=== PATIENT | female | born 1945 | race Caucasian/White ===

== ENCOUNTER 2021-03-17 22:51 | Inpatient (IN) ==
[2021-03-18] MEDS ORDERED: Naloxone 0.4 MG/ML INJ IVP PRN (02:08)
[2021-03-18] MEDS ORDERED: Ondansetron 4 MG/2 ML VIAL IVP PRN (02:08)
[2021-03-18] MEDS ORDERED: *HR* Dextrose 50 % in Water (Syg) 50 ML SYRINGE IVP PRN (02:21)
[2021-03-18] MEDS ORDERED: D5% in Water 1,000 ML IVC PRN (02:21)
[2021-03-18] MEDS ORDERED: Dextrose Gel 15 GM/37.5 ML TUBE PO PRN ×2 (02:21)
[2021-03-18] MEDS ORDERED: Perflutren Lipid Microsphere 1.3 ML in 0.9 % Sodium Chloride 8.7 ML IVP PRN (02:58)
[2021-03-18 03:11] LABS: Basophils % 0.1 %; Hemoglobin 10.4 g/dL (11.5-15.4); Immature Granulocytes % 0.4 % (0-4); Lymphocytes # 0.7 K/mcL (0.6-4.6); Lymphocytes % 4.5 %; Mean Corpuscular HGB Conc 30.6 g/dL (31.6-35.5); Mean Corpuscular Hemoglobin 26.4 pg (28.0-33.3); Mean Corpuscular Volume 86.3 fL (83.0-100.0); Mean Platelet Volume 9.7 fL (9.4-12.4); Monocytes # 0.1 K/mcL (0.0-1.3); Monocytes % 0.5 %; Neutrophils # 13.8 K/mcL (1.6-8.9); Platelet Count 216 K/mcL (140-400); Red Blood Count 3.94 M/mcL (3.82-4.97); Red Cell Distribution Width 13.1 % (11.5-14.5); Segmented Neutrophils % 94.5 %; White Blood Count 14.6 K/mcL (4.3-11.1)
[2021-03-18 03:15] LABS: INR 1.1; Prothrombin Time 11.9 Seconds (9.4-12.1)
[2021-03-18 03:29] LABS: Alanine Aminotransferase 12 Units/L (7-52); Albumin/Globulin Ratio 1.3 (1.1-2.2); Alkaline Phosphatase 101 Units/L (34-104); Aspartate Amino Transferase 15 Units/L (13-39); BUN/Creatinine Ratio 15 (6-26); Bilirubin,Total 0.3 mg/dL (0.3-1.0); Blood Urea Nitrogen 15 mg/dL (8-23); Calcium 9.2 mg/dL (8.6-10.3); Carbon Dioxide 35 mEq/L (23-29); Chloride 91 mEq/L (98-107); Globulin 3.1 g/dL (2.4-3.5); Glucose 201 mg/dL (70-105); Magnesium 1.2 mg/dL (1.6-2.6); Osmolality,Calculated 285 (280-300); Phosphorous 3.4 mg/dL (2.7-4.5); Potassium 3.8 mEq/L (3.5-5.1); Sodium 134 mEq/L (136-145); Total Protein 7.1 g/dL (6.4-8.9); Troponin I 0.03 ng/mL (< 0.04); eGFR For African Americans > 60 (> 60); eGFR For Non-African Americans 55 (> 60)
[2021-03-18] MEDS: Ipratropium/Albuterol Neb 3 ML IH SCH ×6 (03:48→23:39)
[2021-03-18] MEDS: MethylPREDNISolone 40 MG/ML VIAL IVP SCH ×3 (04:05→20:14)
[2021-03-18 04:36] LABS: Adenovirus Not Detected (Not Detect); Bordetella Pertussis Not Detected (Not Detect); Chlamydophila pneumoniae Not Detected (Not Detect); Coronavirus 229E Not Detected (Not Detect); Coronavirus HKU1 Not Detected (Not Detect); Coronavirus NL63 Not Detected (Not Detect); Coronavirus OC43 Not Detected (Not Detect); Human Metapneumovirus Not Detected (Not Detect); Human Rhinovirus/Enterovirus Not Detected (Not Detect); Influenza A Subtype 2009 H1 Not Detected (Not Detect); Influenza B Not Detected (Not Detect); Mycoplasma pneumoniae Not Detected (Not Detect); Parainfluenza Virus 1 Not Detected (Not Detect); Parainfluenza Virus 2 Not Detected (Not Detect); Parainfluenza Virus 3 Not Detected (Not Detect); Parainfluenza Virus 4 Not Detected (Not Detect); Respiratory Syncytial Virus Not Detected (Not Detect); SARS-CoV-2 Not Detected (Not Detect)
[2021-03-18] MEDS: *HR* Heparin 5,000 UNIT/ML VIAL SQ SCH ×3 (05:24→20:14)
[2021-03-18] MEDS: Acetaminophen 325 MG TABLET PO PRN ×2 (05:24→20:15)
[2021-03-18] MEDS ORDERED: MethylPREDNISolone 40 MG/ML VIAL IVP SCH (08:00)
[2021-03-18] MEDS: Artificial Tears SOLN 15 ML BOTTLE BOTH EYES SCH ×4 (08:04→20:13)
[2021-03-18] MEDS: Saline Nasal Spray 44 ML BOTTLE NS SCH ×4 (08:04→20:13)
[2021-03-18] MEDS: Saliva Stimulant 44.3ml BOTTLE PO SCH ×2 (08:04→13:04)
[2021-03-18] MEDS: cefTRIAXone 1,000 MG in 0.9 % Sodium Chloride Mini Bag 100 ML IVPB SCH (08:05)
[2021-03-18] MEDS: Lactobacillus 1 EACH CAP.SPRINK PO SCH ×2 (08:05→20:14)
[2021-03-18] MEDS: Multivit/Ca/Min/Fe/FA 1 TAB TABLET PO SCH (08:05)
[2021-03-18] MEDS: Azithromycin 500 MG in 0.9 % Sodium Chloride 250 ML IVPB SCH (08:06)
[2021-03-18] MEDS ORDERED: Chlorhexidine Rinse 15 ML MOUTHWASH MM SCH (09:00)
[2021-03-18] MEDS: Budesonide/Formoterol 160/4.5 1 PUFF INH IH SCH ×2 (09:08→20:26)
[2021-03-18 09:11] LABS: ABG Base Excess 10 mEq/L (-2 to 3); ABG HCO3 37 mEq/L (21-27); ABG Oxygen Saturation 97 % (95-98); ABG PCO2 63 mmHg (35-45); ABG PH 7.37 pH Units (7.32-7.45); ABG PO2 101 mmHg (85-104); ABG TCO2 39 mEq/L (20-26)
[2021-03-18] MEDS: Sennosides/Docusate Sodium TABLET PO SCH (14:13)
[2021-03-18 16:19] LABS: Bilirubin,Urine Negative (Negative); Blood,Urine Negative (Negative); Clarity,Urine Clear (Clear); Color,Urine Light-Yellow (Yellow); Glucose,Urine (UA) >=1000 mg/dL (Normal); Hyaline Casts,Urine Moderate per lpf (None Seen); Ketones,Urine Negative (Negative); Leukocyte Esterase,Urine Negative (Negative); Mucus,Urine Few per lpf (None-Few); Nitrite,Urine Negative (Negative); PH,Urine 5.5 pH Units (5.0-8.0); Protein,Urine Negative (Neg-Trace); Specific Gravity,Urine 1.015 (1.010-1.025); Squamous Epithelial Cell,Urine Few per hpf (None-Few); Urobilinogen,Urine Normal (Normal); WBC,Urine 0-3 per hpf (0-3)
[2021-03-18] MEDS: Acetylcysteine 10% 2 ML INHSOL IH SCH ×2 (16:27→20:26)
[2021-03-18] MEDS: Melatonin 3 MG TABLET PO PRN (20:14)
[2021-03-19 01:37] LABS: Basophils % 0.2 %; Hematocrit 32.5 % (35.3-44.9); Hemoglobin 10.3 g/dL (11.5-15.4); Immature Granulocytes % 0.6 % (0-4); Lymphocytes # 0.6 K/mcL (0.6-4.6); Lymphocytes % 4.4 %; Mean Corpuscular HGB Conc 31.7 g/dL (31.6-35.5); Mean Corpuscular Volume 85.3 fL (83.0-100.0); Mean Platelet Volume 9.7 fL (9.4-12.4); Monocytes # 0.2 K/mcL (0.0-1.3); Monocytes % 1.5 %; Neutrophils # 12.4 K/mcL (1.6-8.9); Platelet Count 230 K/mcL (140-400); Red Blood Count 3.81 M/mcL (3.82-4.97); Red Cell Distribution Width 13.2 % (11.5-14.5); Segmented Neutrophils % 93.3 %; White Blood Count 13.3 K/mcL (4.3-11.1)
[2021-03-19 01:40] LABS: BUN/Creatinine Ratio 19 (6-26); Blood Urea Nitrogen 15 mg/dL (8-23); Calcium 8.9 mg/dL (8.6-10.3); Carbon Dioxide 36 mEq/L (23-29); Chloride 92 mEq/L (98-107); Glucose 210 mg/dL (70-105); Osmolality,Calculated 287 (280-300); Potassium 3.5 mEq/L (3.5-5.1); Sodium 135 mEq/L (136-145); eGFR For African Americans > 60 (> 60); eGFR For Non-African Americans > 60 (> 60)
[2021-03-19] MEDS: Ipratropium/Albuterol Neb 3 ML IH SCH ×6 (03:58→23:43)
[2021-03-19] MEDS: MethylPREDNISolone 40 MG/ML VIAL IVP SCH (05:05)
[2021-03-19] MEDS: *HR* Heparin 5,000 UNIT/ML VIAL SQ SCH ×3 (05:05→20:52)
[2021-03-19] MEDS: Budesonide/Formoterol 160/4.5 1 PUFF INH IH SCH ×2 (08:16→19:59)
[2021-03-19] MEDS: Acetylcysteine 10% 2 ML INHSOL IH SCH ×3 (08:17→19:56)
[2021-03-19] MEDS: Multivit/Ca/Min/Fe/FA 1 TAB TABLET PO SCH (08:29)
[2021-03-19] MEDS: Lactobacillus 1 EACH CAP.SPRINK PO SCH ×2 (08:29→20:52)
[2021-03-19] MEDS: Saline Nasal Spray 44 ML BOTTLE NS SCH ×4 (08:29→20:52)
[2021-03-19] MEDS: Sennosides/Docusate Sodium TABLET PO SCH (08:29)
[2021-03-19] MEDS: cefTRIAXone 1,000 MG in 0.9 % Sodium Chloride Mini Bag 100 ML IVPB SCH (08:30)
[2021-03-19] MEDS: Artificial Tears SOLN 15 ML BOTTLE BOTH EYES SCH ×4 (08:30→20:52)
[2021-03-19] MEDS: Azithromycin 500 MG in 0.9 % Sodium Chloride 250 ML IVPB SCH (08:31)
[2021-03-19] MEDS ORDERED: SENNOSIDES 15 MG PO PRN (11:23)
[2021-03-19] MEDS ORDERED: Melatonin 3 MG TABLET PO PRN (11:25)
[2021-03-19] MEDS: predniSONE 20 MG TABLET PO SCH (13:00)
[2021-03-19] MEDS: Baclofen 10 MG TABLET PO SCH ×3 (13:00→20:51)
[2021-03-19] MEDS: Gabapentin 100 MG CAPSULE PO SCH ×2 (14:58→20:51)
[2021-03-19] MEDS: Budesonide/Formoterol 80/4.5 1 PUFF INH IH SCH (20:00)
[2021-03-19] MEDS: hydrOXYzine pamoate 25 MG CAPSULE PO SCH (20:51)
[2021-03-19] MEDS: Melatonin 3 MG TABLET PO PRN (20:51)
[2021-03-20] MEDS: Ipratropium/Albuterol Neb 3 ML IH SCH ×6 (04:17→23:25)
[2021-03-20] MEDS: *HR* Heparin 5,000 UNIT/ML VIAL SQ SCH ×3 (05:44→21:27)
[2021-03-20] MEDS: Budesonide/Formoterol 160/4.5 1 PUFF INH IH SCH ×2 (07:38→20:19)
[2021-03-20] MEDS: Acetylcysteine 10% 2 ML INHSOL IH SCH ×3 (07:38→20:19)
[2021-03-20] MEDS: Budesonide/Formoterol 80/4.5 1 PUFF INH IH SCH ×2 (07:46→20:22)
[2021-03-20] MEDS: Gabapentin 100 MG CAPSULE PO SCH ×3 (08:13→21:25)
[2021-03-20] MEDS: ARIPiprazole 5 MG TABLET PO SCH (08:13)
[2021-03-20] MEDS: Artificial Tears SOLN 15 ML BOTTLE BOTH EYES SCH ×4 (08:13→21:28)
[2021-03-20] MEDS: Saline Nasal Spray 44 ML BOTTLE NS SCH ×4 (08:13→21:28)
[2021-03-20] MEDS: Multivit/Ca/Min/Fe/FA 1 TAB TABLET PO SCH (08:14)
[2021-03-20] MEDS: Baclofen 10 MG TABLET PO SCH ×4 (08:14→21:25)
[2021-03-20] MEDS: Sennosides/Docusate Sodium TABLET PO SCH (08:14)
[2021-03-20] MEDS: Lactobacillus 1 EACH CAP.SPRINK PO SCH ×2 (08:14→21:25)
[2021-03-20] MEDS: hydrOXYzine pamoate 25 MG CAPSULE PO SCH ×2 (08:14→21:25)
[2021-03-20] MEDS: predniSONE 20 MG TABLET PO SCH (08:15)
[2021-03-20] MEDS: atenoloL 25 MG TABLET PO SCH (08:15)
[2021-03-20] MEDS: Melatonin 3 MG TABLET PO PRN (21:26)
[2021-03-21] MEDS: Ipratropium/Albuterol Neb 3 ML IH SCH ×6 (03:41→23:32)
[2021-03-21] MEDS: *HR* Heparin 5,000 UNIT/ML VIAL SQ SCH ×3 (06:06→21:56)
[2021-03-21 06:11] LABS: Hematocrit 33.6 % (35.3-44.9); Hemoglobin 10.5 g/dL (11.5-15.4); Mean Corpuscular HGB Conc 31.3 g/dL (31.6-35.5); Mean Corpuscular Hemoglobin 27.3 pg (28.0-33.3); Mean Corpuscular Volume 87.5 fL (83.0-100.0); Mean Platelet Volume 9.6 fL (9.4-12.4); Platelet Count 259 K/mcL (140-400); Red Blood Count 3.84 M/mcL (3.82-4.97); Red Cell Distribution Width 13.3 % (11.5-14.5)
[2021-03-21 06:19] LABS: BUN/Creatinine Ratio 21 (6-26); Blood Urea Nitrogen 16 mg/dL (8-23); Calcium 9.1 mg/dL (8.6-10.3); Carbon Dioxide 33 mEq/L (23-29); Chloride 97 mEq/L (98-107); Glucose 176 mg/dL (70-105); Osmolality,Calculated 289 (280-300); Potassium 3.3 mEq/L (3.5-5.1); Sodium 137 mEq/L (136-145); eGFR For African Americans > 60 (> 60); eGFR For Non-African Americans > 60 (> 60)
[2021-03-21] MEDS: Lactobacillus 1 EACH CAP.SPRINK PO SCH ×2 (07:44→21:56)
[2021-03-21] MEDS: Baclofen 10 MG TABLET PO SCH ×4 (07:44→21:56)
[2021-03-21] MEDS: Sennosides/Docusate Sodium TABLET PO SCH (07:44)
[2021-03-21] MEDS: Multivit/Ca/Min/Fe/FA 1 TAB TABLET PO SCH (07:44)
[2021-03-21] MEDS: Gabapentin 100 MG CAPSULE PO SCH ×3 (07:44→21:56)
[2021-03-21] MEDS: hydrOXYzine pamoate 25 MG CAPSULE PO SCH ×2 (07:44→21:56)
[2021-03-21] MEDS: predniSONE 20 MG TABLET PO SCH (07:44)
[2021-03-21] MEDS: Saline Nasal Spray 44 ML BOTTLE NS SCH ×4 (07:45→21:55)
[2021-03-21] MEDS: atenoloL 25 MG TABLET PO SCH (07:45)
[2021-03-21] MEDS: Artificial Tears SOLN 15 ML BOTTLE BOTH EYES SCH ×4 (07:45→16:44)
[2021-03-21] MEDS: ARIPiprazole 5 MG TABLET PO SCH (07:45)
[2021-03-21] MEDS: Acetylcysteine 10% 2 ML INHSOL IH SCH ×3 (08:23→23:32)
[2021-03-21] MEDS: Budesonide/Formoterol 160/4.5 1 PUFF INH IH SCH ×2 (08:23→19:34)
[2021-03-21] MEDS: Budesonide/Formoterol 80/4.5 1 PUFF INH IH SCH ×2 (11:44→19:34)
[2021-03-22] MEDS: Ipratropium/Albuterol Neb 3 ML IH SCH ×6 (03:21→23:07)
[2021-03-22] MEDS: *HR* Heparin 5,000 UNIT/ML VIAL SQ SCH ×3 (05:35→20:04)
[2021-03-22] MEDS: Gabapentin 100 MG CAPSULE PO SCH ×3 (07:23→20:01)
[2021-03-22] MEDS: hydrOXYzine pamoate 25 MG CAPSULE PO SCH ×2 (07:23→20:06)
[2021-03-22] MEDS: Multivit/Ca/Min/Fe/FA 1 TAB TABLET PO SCH (07:23)
[2021-03-22] MEDS: predniSONE 20 MG TABLET PO SCH (07:23)
[2021-03-22] MEDS: Lactobacillus 1 EACH CAP.SPRINK PO SCH ×2 (07:23→20:01)
[2021-03-22] MEDS: Sennosides/Docusate Sodium TABLET PO SCH (07:23)
[2021-03-22] MEDS: Baclofen 10 MG TABLET PO SCH ×3 (07:23→17:26)
[2021-03-22] MEDS: atenoloL 25 MG TABLET PO SCH (07:23)
[2021-03-22] MEDS: ARIPiprazole 5 MG TABLET PO SCH (07:23)
[2021-03-22] MEDS: Saline Nasal Spray 44 ML BOTTLE NS SCH ×4 (07:24→20:01)
[2021-03-22] MEDS: Artificial Tears SOLN 15 ML BOTTLE BOTH EYES SCH ×4 (07:24→20:01)
[2021-03-22] MEDS: Budesonide/Formoterol 160/4.5 1 PUFF INH IH SCH ×2 (08:54→20:08)
[2021-03-22] MEDS: Budesonide/Formoterol 80/4.5 1 PUFF INH IH SCH ×2 (08:54→20:08)
[2021-03-22] MEDS: Acetylcysteine 10% 2 ML INHSOL IH SCH ×3 (08:54→23:07)
[2021-03-22] MEDS: Acetaminophen 325 MG TABLET PO PRN (20:00)
[2021-03-23 04:09] VITALS: TEMP 97.9
[2021-03-23] MEDS: Ipratropium/Albuterol Neb 3 ML IH SCH ×3 (04:11→11:51)
[2021-03-23] MEDS: *HR* Heparin 5,000 UNIT/ML VIAL SQ SCH (06:10)
[2021-03-23 06:58] VITALS: BP 130/54; PULSE 81
[2021-03-23] MEDS: Acetylcysteine 10% 2 ML INHSOL IH SCH (08:26)
[2021-03-23] MEDS: Budesonide/Formoterol 160/4.5 1 PUFF INH IH SCH (08:44)
[2021-03-23 08:47] VITALS: O2SAT 96
[2021-03-23] MEDS: predniSONE 20 MG TABLET PO SCH (09:09)
[2021-03-23] MEDS: atenoloL 25 MG TABLET PO SCH (09:09)
[2021-03-23] MEDS: Sennosides/Docusate Sodium TABLET PO SCH (09:09)
[2021-03-23] MEDS: ARIPiprazole 5 MG TABLET PO SCH (09:09)
[2021-03-23] MEDS: hydrOXYzine pamoate 25 MG CAPSULE PO SCH (09:10)
[2021-03-23] MEDS: Multivit/Ca/Min/Fe/FA 1 TAB TABLET PO SCH (09:10)
[2021-03-23] MEDS: Lactobacillus 1 EACH CAP.SPRINK PO SCH (09:10)
[2021-03-23] MEDS: Gabapentin 100 MG CAPSULE PO SCH (09:10)
[2021-03-23] MEDS: Artificial Tears SOLN 15 ML BOTTLE BOTH EYES SCH (09:10)
[2021-03-23] MEDS: Saline Nasal Spray 44 ML BOTTLE NS SCH (09:11)
[2021-03-23] MEDS: Acetaminophen 325 MG TABLET PO PRN (10:35)
== END 2021-03-23 13:30 | disposition home health service (06) | DRG 871 ==
LOC: 2NENU → SUATTDRO 03-18 01:18
PROVIDERS: ADMIT Internal Medicine; ATTEND Internal Medicine

== ENCOUNTER 2021-09-01 21:42 | Inpatient (IN) ==
[2021-09-01 21:59] LABS: ABG Base Excess 17 mEq/L (-2 to 3); ABG HCO3 45 mEq/L (21-27); ABG Oxygen Saturation 96 % (95-98); ABG PCO2 70 mmHg (35-45); ABG PH 7.42 pH Units (7.32-7.45); ABG PO2 83 mmHg (85-104); ABG TCO2 47 mEq/L (20-26); Blood Gas Pressure Support 8 cm H2O
[2021-09-01 22:54] LABS: Basophils % 0.1 %; Eosinophils % 0.1 %; Hematocrit 36.3 % (35.3-44.9); Hemoglobin 11.1 g/dL (11.5-15.4); Immature Granulocytes % 0.8 % (0-4); Lymphocytes # 0.7 K/mcL (0.6-4.6); Lymphocytes % 8.4 %; Mean Corpuscular HGB Conc 30.6 g/dL (31.6-35.5); Mean Corpuscular Hemoglobin 26.5 pg (28.0-33.3); Mean Corpuscular Volume 86.6 fL (83.0-100.0); Mean Platelet Volume 9.5 fL (9.4-12.4); Monocytes # 0.1 K/mcL (0.0-1.3); Monocytes % 0.8 %; Neutrophils # 7.8 K/mcL (1.6-8.9); Platelet Count 314 K/mcL (140-400); Red Blood Count 4.19 M/mcL (3.82-4.97); Red Cell Distribution Width 13.9 % (11.5-14.5); Segmented Neutrophils % 89.8 %; White Blood Count 8.7 K/mcL (4.3-11.1)
[2021-09-01 22:58] LABS: BUN/Creatinine Ratio 22 (6-26); Blood Urea Nitrogen 21 mg/dL (8-23); Calcium 10.2 mg/dL (8.6-10.3); Carbon Dioxide 41 mEq/L (23-29); Chloride 86 mEq/L (98-107); Glucose 149 mg/dL (70-105); Osmolality,Calculated 290 (280-300); Potassium 4.8 mEq/L (3.5-5.1); Sodium 137 mEq/L (136-145); eGFR For African Americans > 60 (> 60); eGFR For Non-African Americans 58 (> 60)
[2021-09-01] MEDS ORDERED: cefTRIAXone 1,000 MG in 0.9 % Sodium Chloride 10 ML IVP ONE (23:04)
[2021-09-01] MEDS ORDERED: Azithromycin 500 MG in 0.9 % Sodium Chloride 250 ML IVPB ONE (23:04)
[2021-09-02] MEDS ORDERED: Naloxone 0.4 MG/ML INJ IVP PRN (02:02)
[2021-09-02] MEDS ORDERED: Melatonin 3 MG TABLET PO PRN (02:02)
[2021-09-02 02:57] LABS: Adenovirus Not Detected (Not Detect); Bordetella Pertussis Not Detected (Not Detect); Chlamydophila pneumoniae Not Detected (Not Detect); Coronavirus 229E Not Detected (Not Detect); Coronavirus HKU1 Not Detected (Not Detect); Coronavirus NL63 Not Detected (Not Detect); Coronavirus OC43 Not Detected (Not Detect); Human Metapneumovirus Not Detected (Not Detect); Human Rhinovirus/Enterovirus Not Detected (Not Detect); Influenza A Subtype 2009 H1 Not Detected (Not Detect); Influenza B Not Detected (Not Detect); Mycoplasma pneumoniae Not Detected (Not Detect); Parainfluenza Virus 1 Not Detected (Not Detect); Parainfluenza Virus 2 Not Detected (Not Detect); Parainfluenza Virus 3 Not Detected (Not Detect); Parainfluenza Virus 4 Not Detected (Not Detect); Respiratory Syncytial Virus Not Detected (Not Detect); SARS-CoV-2 Not Detected (Not Detect)
[2021-09-02] MEDS ORDERED: Acetaminophen 325 MG TABLET PO PRN (04:14)
[2021-09-02] MEDS ORDERED: Albuterol 2.5 MG/3 ML NEBULIZER IH PRN (04:16)
[2021-09-02 06:18] LABS: Hematocrit 35.5 % (35.3-44.9); Hemoglobin 10.9 g/dL (11.5-15.4); Mean Corpuscular HGB Conc 30.7 g/dL (31.6-35.5); Mean Corpuscular Hemoglobin 26.5 pg (28.0-33.3); Mean Corpuscular Volume 86.4 fL (83.0-100.0); Mean Platelet Volume 10.1 fL (9.4-12.4); Platelet Count 307 K/mcL (140-400); Red Blood Count 4.11 M/mcL (3.82-4.97); Red Cell Distribution Width 13.7 % (11.5-14.5)
[2021-09-02 06:24] LABS: BUN/Creatinine Ratio 26 (6-26); Blood Urea Nitrogen 20 mg/dL (8-23); Calcium 9.8 mg/dL (8.6-10.3); Carbon Dioxide 40 mEq/L (23-29); Chloride 89 mEq/L (98-107); Glucose 139 mg/dL (70-105); Osmolality,Calculated 291 (280-300); Potassium 4.8 mEq/L (3.5-5.1); Sodium 138 mEq/L (136-145); eGFR For African Americans > 60 (> 60); eGFR For Non-African Americans > 60 (> 60)
[2021-09-02] MEDS: Ipratropium/Albuterol Neb 3 ML IH SCH ×4 (07:48→21:15)
[2021-09-02] MEDS ORDERED: *HR* LORazepam 1 MG TABLET PO PRN (08:00)
[2021-09-02] MEDS: Gabapentin 100 MG CAPSULE PO SCH ×3 (08:55→20:05)
[2021-09-02] MEDS ORDERED: predniSONE 20 MG TABLET PO SCH (09:00)
[2021-09-02 11:13] LABS: ABG Base Excess 14 mEq/L (-2 to 3); ABG HCO3 44 mEq/L (21-27); ABG Oxygen Saturation 98 % (95-98); ABG PCO2 82 mmHg (35-45); ABG PH 7.33 pH Units (7.32-7.45); ABG PO2 126 mmHg (85-104); ABG TCO2 46 mEq/L (20-26)
[2021-09-02] MEDS: Baclofen 10 MG TABLET PO SCH ×3 (12:29→20:05)
[2021-09-02] MEDS: *HR* HYDROcodone/Acet 5/325 mg TABLET PO PRN ×2 (12:29→20:34)
[2021-09-02] MEDS: Benzonatate 100 MG CAPSULE PO SCH ×2 (15:03→20:05)
[2021-09-02] MEDS ORDERED: cefTRIAXone 1,000 MG in Water for inj. (sterile) 10 ML IVP SCH (18:00)
[2021-09-02] MEDS: Azithromycin 500 MG in 0.9 % Sodium Chloride 250 ML IVPB SCH (18:02)
[2021-09-02] MEDS ORDERED: Ketorolac 30 MG/ML VIAL IVP ONE (19:17)
[2021-09-02] MEDS: Melatonin 3 MG TABLET PO SCH (20:04)
[2021-09-02] MEDS: hydrALAZINE 25 MG TABLET PO SCH (20:04)
[2021-09-02] MEDS: clonazePAM 0.5 MG TABLET PO SCH (20:04)
[2021-09-02] MEDS: Ondansetron ODT 4 MG TAB.RAPDIS SL PRN (20:34)
[2021-09-02] MEDS: Budesonide/Formoterol 80/4.5 1 PUFF INH IH SCH (21:15)
[2021-09-02] MEDS ORDERED: Acetaminophen IV 500 MG/50 ML BAG IVPB ONE (21:24)
[2021-09-03 01:17] LABS: Hematocrit 30.2 % (35.3-44.9); Hemoglobin 9.4 g/dL (11.5-15.4); Mean Corpuscular HGB Conc 31.1 g/dL (31.6-35.5); Mean Corpuscular Hemoglobin 26.6 pg (28.0-33.3); Mean Corpuscular Volume 85.3 fL (83.0-100.0); Mean Platelet Volume 9.8 fL (9.4-12.4); Platelet Count 265 K/mcL (140-400); Red Blood Count 3.54 M/mcL (3.82-4.97); Red Cell Distribution Width 13.5 % (11.5-14.5)
[2021-09-03 01:42] LABS: BUN/Creatinine Ratio 28 (6-26); Blood Urea Nitrogen 23 mg/dL (8-23); Calcium 9.1 mg/dL (8.6-10.3); Carbon Dioxide 42 mEq/L (23-29); Chloride 90 mEq/L (98-107); Glucose 225 mg/dL (70-105); Osmolality,Calculated 293 (280-300); Sodium 136 mEq/L (136-145); eGFR For African Americans > 60 (> 60); eGFR For Non-African Americans > 60 (> 60)
[2021-09-03 04:20] LABS: ABG Base Excess 16 mEq/L (-2 to 3); ABG HCO3 44 mEq/L (21-27); ABG Oxygen Saturation 100 % (95-98); ABG PCO2 78 mmHg (35-45); ABG PH 7.36 pH Units (7.32-7.45); ABG PO2 319 mmHg (85-104); ABG TCO2 47 mEq/L (20-26)
[2021-09-03] MEDS: Ipratropium/Albuterol Neb 3 ML IH SCH ×4 (04:21→22:08)
[2021-09-03] MEDS: *HR* HYDROcodone/Acet 5/325 mg TABLET PO PRN ×2 (04:43→14:56)
[2021-09-03] MEDS: MethylPREDNISolone 40 MG/ML VIAL IVP SCH (09:04)
[2021-09-03] MEDS: Piperacillin/Tazobactam 3.375 GM in 0.9 % Sodium Chloride Mini Bag 100 ML IVPB SCH ×2 (09:04→15:13)
[2021-09-03] MEDS: hydrALAZINE 25 MG TABLET PO SCH ×2 (09:05→22:01)
[2021-09-03] MEDS: Benzonatate 100 MG CAPSULE PO SCH ×3 (09:05→22:01)
[2021-09-03] MEDS: Gabapentin 100 MG CAPSULE PO SCH ×3 (09:05→22:01)
[2021-09-03] MEDS: Baclofen 10 MG TABLET PO SCH ×4 (09:05→22:01)
[2021-09-03] MEDS: atenoloL 25 MG TABLET PO SCH (09:05)
[2021-09-03] MEDS: Furosemide 20 MG TABLET PO SCH (09:05)
[2021-09-03] MEDS: Artificial Tears SOLN 15 ML BOTTLE BOTH EYES PRN ×3 (09:33→17:23)
[2021-09-03] MEDS: Budesonide/Formoterol 80/4.5 1 PUFF INH IH SCH ×2 (11:12→22:08)
[2021-09-03] MEDS ORDERED: Acetaminophen 325 MG TABLET PO PRN (13:25)
[2021-09-03] MEDS: Azithromycin 500 MG in 0.9 % Sodium Chloride 250 ML IVPB SCH (17:18)
[2021-09-03] MEDS: clonazePAM 0.5 MG TABLET PO SCH (22:01)
[2021-09-03] MEDS: Melatonin 3 MG TABLET PO SCH (22:01)
[2021-09-03] MEDS ORDERED: Acetaminophen IV 500 MG/50 ML BAG IVPB ONE (22:07)
[2021-09-03] MEDS ORDERED: 0.9 % Sodium Chloride 1,000 ML IVC ONE (23:09)
[2021-09-04] MEDS: *HR* HYDROcodone/Acet 5/325 mg TABLET PO PRN ×2 (02:36→15:04)
[2021-09-04] MEDS: Piperacillin/Tazobactam 3.375 GM in 0.9 % Sodium Chloride Mini Bag 100 ML IVPB SCH ×4 (02:56→17:56)
[2021-09-04 03:54] LABS: BUN/Creatinine Ratio 29 (6-26); Blood Urea Nitrogen 20 mg/dL (8-23); Carbon Dioxide 39 mEq/L (23-29); Chloride 93 mEq/L (98-107); Glucose 127 mg/dL (70-105); Osmolality,Calculated 290 (280-300); Sodium 138 mEq/L (136-145); eGFR For African Americans > 60 (> 60); eGFR For Non-African Americans > 60 (> 60)
[2021-09-04] MEDS: Ipratropium/Albuterol Neb 3 ML IH SCH ×4 (04:02→23:25)
[2021-09-04] MEDS: *HR* Enoxaparin 40 MG/0.4 ML SYRINGE SQ SCH (06:18)
[2021-09-04] MEDS: Benzonatate 100 MG CAPSULE PO SCH ×3 (08:32→21:05)
[2021-09-04] MEDS: Gabapentin 100 MG CAPSULE PO SCH ×3 (08:32→21:06)
[2021-09-04] MEDS: Baclofen 10 MG TABLET PO SCH ×4 (08:32→21:06)
[2021-09-04] MEDS: Furosemide 20 MG TABLET PO SCH (08:32)
[2021-09-04] MEDS: hydrALAZINE 25 MG TABLET PO SCH ×2 (08:33→21:06)
[2021-09-04] MEDS: MethylPREDNISolone 40 MG/ML VIAL IVP SCH (08:33)
[2021-09-04] MEDS: atenoloL 25 MG TABLET PO SCH (08:33)
[2021-09-04] MEDS ORDERED: Iopamidol - 370 500 ML MLS IVP ONE (10:33)
[2021-09-04] MEDS: Budesonide/Formoterol 80/4.5 1 PUFF INH IH SCH ×2 (11:04→23:25)
[2021-09-04 14:41] LABS: Bilirubin,Urine Negative (Negative); Blood,Urine Negative (Negative); Clarity,Urine Clear (Clear); Color,Urine Colorless (Yellow); Glucose,Urine (UA) Normal (Normal); Ketones,Urine Negative (Negative); Leukocyte Esterase,Urine Negative (Negative); Nitrite,Urine Negative (Negative); PH,Urine 6.5 pH Units (5.0-8.0); Protein,Urine Negative (Neg-Trace); Specific Gravity,Urine 1.015 (1.010-1.025); Urobilinogen,Urine Normal (Normal)
[2021-09-04] MEDS: Azithromycin 500 MG in 0.9 % Sodium Chloride 250 ML IVPB SCH (17:56)
[2021-09-04] MEDS: Melatonin 3 MG TABLET PO SCH (21:06)
[2021-09-04] MEDS: clonazePAM 0.5 MG TABLET PO SCH (21:06)
[2021-09-05] MEDS: Piperacillin/Tazobactam 3.375 GM in 0.9 % Sodium Chloride Mini Bag 100 ML IVPB SCH ×3 (02:31→18:08)
[2021-09-05] MEDS: *HR* HYDROcodone/Acet 5/325 mg TABLET PO PRN ×3 (02:33→18:08)
[2021-09-05 02:56] LABS: BUN/Creatinine Ratio 24 (6-26); Blood Urea Nitrogen 13 mg/dL (8-23); Calcium 8.9 mg/dL (8.6-10.3); Carbon Dioxide 41 mEq/L (23-29); Chloride 96 mEq/L (98-107); Glucose 105 mg/dL (70-105); Osmolality,Calculated 290 (280-300); Potassium 3.8 mEq/L (3.5-5.1); Sodium 140 mEq/L (136-145); eGFR For African Americans > 60 (> 60); eGFR For Non-African Americans > 60 (> 60)
[2021-09-05] MEDS: Ipratropium/Albuterol Neb 3 ML IH SCH ×4 (03:49→22:20)
[2021-09-05] MEDS: *HR* Enoxaparin 40 MG/0.4 ML SYRINGE SQ SCH (05:14)
[2021-09-05] MEDS: Gabapentin 100 MG CAPSULE PO SCH ×3 (09:04→19:36)
[2021-09-05] MEDS: Baclofen 10 MG TABLET PO SCH ×4 (09:04→19:36)
[2021-09-05] MEDS: atenoloL 25 MG TABLET PO SCH (09:04)
[2021-09-05] MEDS: Benzonatate 100 MG CAPSULE PO SCH ×3 (09:05→19:36)
[2021-09-05] MEDS: Furosemide 20 MG TABLET PO SCH (09:05)
[2021-09-05] MEDS: MethylPREDNISolone 40 MG/ML VIAL IVP SCH (09:05)
[2021-09-05] MEDS: hydrALAZINE 25 MG TABLET PO SCH ×2 (09:05→19:36)
[2021-09-05] MEDS: Budesonide/Formoterol 80/4.5 1 PUFF INH IH SCH ×2 (11:12→22:20)
[2021-09-05] MEDS: Artificial Tears SOLN 15 ML BOTTLE BOTH EYES PRN ×2 (13:05→18:30)
[2021-09-05] MEDS: Azithromycin 500 MG in 0.9 % Sodium Chloride 250 ML IVPB SCH (17:15)
[2021-09-05] MEDS: clonazePAM 0.5 MG TABLET PO SCH (19:36)
[2021-09-05] MEDS: Melatonin 3 MG TABLET PO SCH (19:36)
[2021-09-06] MEDS: Piperacillin/Tazobactam 3.375 GM in 0.9 % Sodium Chloride Mini Bag 100 ML IVPB SCH ×3 (02:56→18:18)
[2021-09-06] MEDS: Ipratropium/Albuterol Neb 3 ML IH SCH ×4 (03:42→22:30)
[2021-09-06] MEDS: *HR* Enoxaparin 40 MG/0.4 ML SYRINGE SQ SCH (05:12)
[2021-09-06] MEDS ORDERED: Iopamidol - 370 500 ML MLS IVP ONE (07:15)
[2021-09-06] MEDS: Benzonatate 100 MG CAPSULE PO SCH ×3 (09:20→20:02)
[2021-09-06] MEDS: Furosemide 20 MG TABLET PO SCH (09:21)
[2021-09-06] MEDS: Gabapentin 100 MG CAPSULE PO SCH ×3 (09:21→20:02)
[2021-09-06] MEDS: hydrALAZINE 25 MG TABLET PO SCH ×2 (09:21→20:03)
[2021-09-06] MEDS: atenoloL 25 MG TABLET PO SCH (09:21)
[2021-09-06] MEDS: Baclofen 10 MG TABLET PO SCH ×4 (09:21→20:02)
[2021-09-06] MEDS: Artificial Tears SOLN 15 ML BOTTLE BOTH EYES PRN (09:22)
[2021-09-06] MEDS: MethylPREDNISolone 40 MG/ML VIAL IVP SCH (09:33)
[2021-09-06] MEDS: ALPRAZolam 0.25 MG TABLET PO PRN (10:03)
[2021-09-06] MEDS: *HR* HYDROcodone/Acet 5/325 mg TABLET PO PRN ×2 (10:03→18:18)
[2021-09-06] MEDS: Budesonide/Formoterol 80/4.5 1 PUFF INH IH SCH ×2 (10:59→22:32)
[2021-09-06] MEDS: clonazePAM 0.5 MG TABLET PO SCH (20:02)
[2021-09-06] MEDS: Melatonin 3 MG TABLET PO SCH (20:03)
[2021-09-07 01:30] LABS: Hematocrit 33.2 % (35.3-44.9); Hemoglobin 10.2 g/dL (11.5-15.4); Mean Corpuscular HGB Conc 30.7 g/dL (31.6-35.5); Mean Corpuscular Hemoglobin 26.8 pg (28.0-33.3); Mean Corpuscular Volume 87.1 fL (83.0-100.0); Mean Platelet Volume 10.2 fL (9.4-12.4); Platelet Count 242 K/mcL (140-400); Red Blood Count 3.81 M/mcL (3.82-4.97); Red Cell Distribution Width 13.8 % (11.5-14.5); White Blood Count 7.4 K/mcL (4.3-11.1)
[2021-09-07 01:48] LABS: BUN/Creatinine Ratio 23 (6-26); Blood Urea Nitrogen 17 mg/dL (8-23); Calcium 8.6 mg/dL (8.6-10.3); Carbon Dioxide 39 mEq/L (23-29); Chloride 97 mEq/L (98-107); Glucose 138 mg/dL (70-105); Osmolality,Calculated 292 (280-300); Potassium 3.7 mEq/L (3.5-5.1); Sodium 139 mEq/L (136-145); eGFR For African Americans > 60 (> 60); eGFR For Non-African Americans > 60 (> 60)
[2021-09-07] MEDS: Piperacillin/Tazobactam 3.375 GM in 0.9 % Sodium Chloride Mini Bag 100 ML IVPB SCH ×3 (02:09→17:37)
[2021-09-07] MEDS: Ipratropium/Albuterol Neb 3 ML IH SCH ×4 (04:20→23:22)
[2021-09-07] MEDS: *HR* Enoxaparin 40 MG/0.4 ML SYRINGE SQ SCH (05:02)
[2021-09-07] MEDS: *HR* HYDROcodone/Acet 5/325 mg TABLET PO PRN ×2 (05:49→15:09)
[2021-09-07] MEDS: hydrALAZINE 25 MG TABLET PO SCH ×2 (08:51→20:27)
[2021-09-07] MEDS: Baclofen 10 MG TABLET PO SCH ×4 (08:51→20:27)
[2021-09-07] MEDS: atenoloL 25 MG TABLET PO SCH (08:51)
[2021-09-07] MEDS: Furosemide 20 MG TABLET PO SCH (08:51)
[2021-09-07] MEDS: Gabapentin 100 MG CAPSULE PO SCH ×3 (08:51→20:27)
[2021-09-07] MEDS: predniSONE 20 MG TABLET PO SCH (08:51)
[2021-09-07] MEDS: Benzonatate 100 MG CAPSULE PO SCH ×3 (08:51→20:26)
[2021-09-07] MEDS: Artificial Tears SOLN 15 ML BOTTLE BOTH EYES PRN ×2 (08:54→18:50)
[2021-09-07] MEDS: Budesonide/Formoterol 80/4.5 1 PUFF INH IH SCH ×2 (09:59→23:22)
[2021-09-07] MEDS: ALPRAZolam 0.25 MG TABLET PO PRN (17:37)
[2021-09-07] MEDS: Ondansetron ODT 4 MG TAB.RAPDIS SL PRN (18:15)
[2021-09-07] MEDS: Melatonin 3 MG TABLET PO SCH (20:26)
[2021-09-07] MEDS: clonazePAM 0.5 MG TABLET PO SCH (20:27)
[2021-09-08] MEDS: Piperacillin/Tazobactam 3.375 GM in 0.9 % Sodium Chloride Mini Bag 100 ML IVPB SCH ×3 (03:24→18:27)
[2021-09-08] MEDS: Ipratropium/Albuterol Neb 3 ML IH SCH ×4 (04:16→22:35)
[2021-09-08] MEDS: *HR* Enoxaparin 40 MG/0.4 ML SYRINGE SQ SCH (06:01)
[2021-09-08] MEDS: *HR* HYDROcodone/Acet 5/325 mg TABLET PO PRN ×2 (07:39→18:28)
[2021-09-08] MEDS: Benzonatate 100 MG CAPSULE PO SCH ×3 (09:23→20:58)
[2021-09-08] MEDS: Baclofen 10 MG TABLET PO SCH ×4 (09:24→20:58)
[2021-09-08] MEDS: hydrALAZINE 25 MG TABLET PO SCH ×2 (09:25→20:58)
[2021-09-08] MEDS: Gabapentin 100 MG CAPSULE PO SCH ×3 (09:25→20:57)
[2021-09-08] MEDS: Furosemide 20 MG TABLET PO SCH (09:27)
[2021-09-08] MEDS: atenoloL 25 MG TABLET PO SCH (09:27)
[2021-09-08] MEDS: predniSONE 20 MG TABLET PO SCH (09:28)
[2021-09-08] MEDS: Budesonide/Formoterol 80/4.5 1 PUFF INH IH SCH ×2 (09:36→22:35)
[2021-09-08] MEDS: Melatonin 3 MG TABLET PO SCH (20:57)
[2021-09-08] MEDS: clonazePAM 0.5 MG TABLET PO SCH (20:58)
[2021-09-08] MEDS: Artificial Tears SOLN 15 ML BOTTLE BOTH EYES PRN (20:58)
[2021-09-09] MEDS: *HR* HYDROcodone/Acet 5/325 mg TABLET PO PRN ×3 (03:00→20:40)
[2021-09-09] MEDS: Piperacillin/Tazobactam 3.375 GM in 0.9 % Sodium Chloride Mini Bag 100 ML IVPB SCH ×3 (03:03→17:49)
[2021-09-09] MEDS: Ipratropium/Albuterol Neb 3 ML IH SCH ×4 (04:50→22:28)
[2021-09-09] MEDS: *HR* Enoxaparin 40 MG/0.4 ML SYRINGE SQ SCH (06:26)
[2021-09-09] MEDS: Budesonide/Formoterol 80/4.5 1 PUFF INH IH SCH ×2 (09:40→22:28)
[2021-09-09] MEDS: hydrALAZINE 25 MG TABLET PO SCH ×2 (11:00→20:36)
[2021-09-09] MEDS: Baclofen 10 MG TABLET PO SCH ×4 (11:00→20:39)
[2021-09-09] MEDS: Furosemide 20 MG TABLET PO SCH (11:00)
[2021-09-09] MEDS: predniSONE 20 MG TABLET PO SCH (11:00)
[2021-09-09] MEDS: Benzonatate 100 MG CAPSULE PO SCH ×3 (11:00→20:36)
[2021-09-09] MEDS: Gabapentin 100 MG CAPSULE PO SCH ×3 (11:00→20:36)
[2021-09-09] MEDS: ALPRAZolam 0.25 MG TABLET PO PRN ×2 (11:06→22:06)
[2021-09-09] MEDS: atenoloL 25 MG TABLET PO SCH (11:06)
[2021-09-09] MEDS: Melatonin 3 MG TABLET PO SCH (20:36)
[2021-09-09] MEDS: clonazePAM 0.5 MG TABLET PO SCH (20:36)
[2021-09-10] MEDS: Piperacillin/Tazobactam 3.375 GM in 0.9 % Sodium Chloride Mini Bag 100 ML IVPB SCH ×2 (02:00→11:22)
[2021-09-10] MEDS: Ipratropium/Albuterol Neb 3 ML IH SCH ×4 (03:51→22:42)
[2021-09-10] MEDS: *HR* Enoxaparin 40 MG/0.4 ML SYRINGE SQ SCH (06:23)
[2021-09-10] MEDS: *HR* HYDROcodone/Acet 5/325 mg TABLET PO PRN ×2 (06:30→20:17)
[2021-09-10] MEDS: atenoloL 25 MG TABLET PO SCH (08:35)
[2021-09-10] MEDS: Furosemide 20 MG TABLET PO SCH (08:35)
[2021-09-10] MEDS: Benzonatate 100 MG CAPSULE PO SCH ×3 (08:35→20:17)
[2021-09-10] MEDS: predniSONE 20 MG TABLET PO SCH (08:35)
[2021-09-10] MEDS: Baclofen 10 MG TABLET PO SCH ×4 (08:35→20:17)
[2021-09-10] MEDS: hydrALAZINE 25 MG TABLET PO SCH ×2 (08:35→20:18)
[2021-09-10] MEDS: Gabapentin 100 MG CAPSULE PO SCH ×3 (08:36→20:18)
[2021-09-10] MEDS: ALPRAZolam 0.25 MG TABLET PO PRN (08:41)
[2021-09-10] MEDS: Budesonide/Formoterol 80/4.5 1 PUFF INH IH SCH ×2 (10:50→22:42)
[2021-09-10] MEDS: Melatonin 3 MG TABLET PO SCH (20:17)
[2021-09-10] MEDS: clonazePAM 0.5 MG TABLET PO SCH (20:17)
[2021-09-11] MEDS: Ipratropium/Albuterol Neb 3 ML IH SCH ×3 (03:43→15:16)
[2021-09-11] MEDS: *HR* HYDROcodone/Acet 5/325 mg TABLET PO PRN ×2 (04:17→15:59)
[2021-09-11] MEDS: *HR* Enoxaparin 40 MG/0.4 ML SYRINGE SQ SCH (05:31)
[2021-09-11 07:20] VITALS: BP 146/68; PULSE 63; TEMP 98.1
[2021-09-11] MEDS: hydrALAZINE 25 MG TABLET PO SCH (09:23)
[2021-09-11] MEDS: Baclofen 10 MG TABLET PO SCH ×3 (09:23→15:59)
[2021-09-11] MEDS: Gabapentin 100 MG CAPSULE PO SCH ×2 (09:23→15:59)
[2021-09-11] MEDS: ALPRAZolam 0.25 MG TABLET PO PRN (09:23)
[2021-09-11] MEDS: Benzonatate 100 MG CAPSULE PO SCH ×2 (09:23→15:59)
[2021-09-11] MEDS: atenoloL 25 MG TABLET PO SCH (09:23)
[2021-09-11] MEDS: Furosemide 20 MG TABLET PO SCH (09:23)
[2021-09-11] MEDS: Budesonide/Formoterol 80/4.5 1 PUFF INH IH SCH (10:30)
[2021-09-11] MEDS: Artificial Tears SOLN 15 ML BOTTLE BOTH EYES PRN (12:37)
[2021-09-11 15:18] VITALS: O2SAT 98
[2021-09-11] MEDS ORDERED: ALPRAZolam 0.25 MG TABLET PO ONE (15:45)
== END 2021-09-11 17:00 | DRG 193 ==
LOC: 2ANU 21:42 → EMEROOARM 21:42 → 2ANU 09-02 02:20 → SUATTDRO 09-02 12:20
PROVIDERS: ADMIT Family Medicine; ATTEND Internal Medicine

== ENCOUNTER 2021-11-29 12:55 | Inpatient (IN) ==
[2021-11-29] MEDS ORDERED: Ipratropium/Albuterol Neb 3 ML IH ONE (13:27)
[2021-11-29] MEDS ORDERED: methylPREDNISolone 125 MG/2 ML VIAL IVP ONE (13:27)
[2021-11-29] MEDS ORDERED: Aspirin 325 MG TABLET PO ONE (13:42)
[2021-11-29] MEDS ORDERED: cefTRIAXone 1,000 MG in 0.9 % Sodium Chloride 10 ML IVP ONE (14:17)
[2021-11-29] MEDS ORDERED: Azithromycin 500 MG in 0.9 % Sodium Chloride 250 ML IVPB ONE (14:17)
[2021-11-29 14:22] LABS: Basophils % 0.2 %; Eosinophils # 0.3 K/mcL (0.0-0.6); Eosinophils % 2.8 %; Hematocrit 32.7 % (35.3-44.9); Hemoglobin 10.1 g/dL (11.5-15.4); Immature Granulocytes % 0.5 % (0-4); Lymphocytes # 2.1 K/mcL (0.6-4.6); Lymphocytes % 23.3 %; Mean Corpuscular HGB Conc 30.9 g/dL (31.6-35.5); Mean Corpuscular Hemoglobin 27.7 pg (28.0-33.3); Mean Corpuscular Volume 89.6 fL (83.0-100.0); Mean Platelet Volume 9.8 fL (9.4-12.4); Monocytes # 0.7 K/mcL (0.0-1.3); Monocytes % 7.4 %; Neutrophils # 5.8 K/mcL (1.6-8.9); Platelet Count 316 K/mcL (140-400); Red Blood Count 3.65 M/mcL (3.82-4.97); Red Cell Distribution Width 14.7 % (11.5-14.5); Segmented Neutrophils % 65.8 %; White Blood Count 8.9 K/mcL (4.3-11.1)
[2021-11-29 14:35] LABS: BUN/Creatinine Ratio 17 (6-26); Blood Urea Nitrogen 13 mg/dL (8-23); Calcium 9.2 mg/dL (8.6-10.3); Carbon Dioxide 36 mEq/L (23-29); Chloride 97 mEq/L (98-107); Glucose 86 mg/dL (70-105); Osmolality,Calculated 287 (280-300); Potassium 4.3 mEq/L (3.5-5.1); Sodium 139 mEq/L (136-145)
[2021-11-29 14:36] LABS: Troponin I < 0.03 ng/mL (< 0.04)
[2021-11-29] MEDS ORDERED: Naloxone 0.4 MG/ML INJ IVP PRN (17:20)
[2021-11-29] MEDS ORDERED: Mag Hydrox/Al Hydrox/Simeth 30 ML UDC PO PRN (17:20)
[2021-11-29] MEDS ORDERED: Melatonin 3 MG TABLET PO PRN (17:20)
[2021-11-29] MEDS ORDERED: Acetaminophen 325 MG TABLET PO PRN (17:20)
[2021-11-29 17:28] LABS: Adenovirus Not Detected (Not Detect); Bordetella Pertussis Not Detected (Not Detect); Chlamydophila pneumoniae Not Detected (Not Detect); Coronavirus 229E Not Detected (Not Detect); Coronavirus HKU1 Not Detected (Not Detect); Coronavirus NL63 Not Detected (Not Detect); Coronavirus OC43 Not Detected (Not Detect); Human Metapneumovirus Not Detected (Not Detect); Human Rhinovirus/Enterovirus Not Detected (Not Detect); Influenza A Subtype 2009 H1 Not Detected (Not Detect); Influenza B Not Detected (Not Detect); Mycoplasma pneumoniae Not Detected (Not Detect); Parainfluenza Virus 1 Not Detected (Not Detect); Parainfluenza Virus 2 Not Detected (Not Detect); Parainfluenza Virus 3 Not Detected (Not Detect); Parainfluenza Virus 4 Not Detected (Not Detect); Respiratory Syncytial Virus Not Detected (Not Detect); SARS-CoV-2 Not Detected (Not Detect)
[2021-11-29] MEDS: predniSONE 20 MG TABLET PO SCH (17:45)
[2021-11-29] MEDS ORDERED: Ipratropium/Albuterol Neb 3 ML IH PRN (20:31)
[2021-11-29] MEDS: Melatonin 3 MG TABLET PO SCH (21:45)
[2021-11-29] MEDS: Famotidine 20 MG TABLET PO SCH (21:45)
[2021-11-29] MEDS: clonazePAM 0.5 MG TABLET PO SCH (21:45)
[2021-11-29] MEDS ORDERED: *HR* FentaNYL (PF) 100 MCG/2 ML VIAL IVP ONE (22:00)
[2021-11-29] MEDS: Budesonide/Formoterol 160/4.5 1 PUFF INH IH SCH (22:13)
[2021-11-30] MEDS ORDERED: 0.9 % Sodium Chloride 10 ML PF VIAL IVP ONE (00:06)
[2021-11-30] MEDS: Cefepime HCl 2,000 MG in 0.9 % Sodium Chloride 10 ML IVP SCH ×3 (00:12→18:12)
[2021-11-30 01:55] LABS: Basophils % 0.1 %; Hematocrit 30.1 % (35.3-44.9); Hemoglobin 9.4 g/dL (11.5-15.4); Immature Granulocytes % 0.7 % (0-4); Lymphocytes # 1.1 K/mcL (0.6-4.6); Lymphocytes % 12.7 %; Mean Corpuscular HGB Conc 31.2 g/dL (31.6-35.5); Mean Corpuscular Hemoglobin 27.5 pg (28.0-33.3); Mean Platelet Volume 9.9 fL (9.4-12.4); Monocytes # 0.1 K/mcL (0.0-1.3); Monocytes % 0.6 %; Neutrophils # 7.4 K/mcL (1.6-8.9); Platelet Count 309 K/mcL (140-400); Red Blood Count 3.42 M/mcL (3.82-4.97); Red Cell Distribution Width 14.6 % (11.5-14.5); Segmented Neutrophils % 85.9 %; White Blood Count 8.6 K/mcL (4.3-11.1)
[2021-11-30 02:02] LABS: Estimated Average Glucose 117 mg/dl; Hemoglobin A1C 5.7 %
[2021-11-30 02:18] LABS: Calcium 8.8 mg/dL (8.6-10.3); Potassium 3.9 mEq/L (3.5-5.1)
[2021-11-30] MEDS: Budesonide/Formoterol 160/4.5 1 PUFF INH IH SCH ×3 (08:00→23:24)
[2021-11-30] MEDS: *HR* HYDROcodone/Acet 5/325 mg TABLET PO PRN ×2 (09:57→18:13)
[2021-11-30] MEDS: predniSONE 20 MG TABLET PO SCH (09:57)
[2021-11-30] MEDS: *HR* Enoxaparin 40 MG/0.4 ML SYRINGE SQ SCH (09:57)
[2021-11-30] MEDS ORDERED: Ondansetron ODT 4 MG TAB.RAPDIS SL PRN (10:03)
[2021-11-30] MEDS ORDERED: Artificial Tears SOLN 15 ML BOTTLE OP PRN (10:03)
[2021-11-30 11:16] LABS: Magnesium 1.8 mg/dL (1.6-2.6); Phosphorous 3.8 mg/dL (2.7-4.5)
[2021-11-30] MEDS ORDERED: Magnesium Oxide 400 MG TABLET ONE (12:43)
[2021-11-30] MEDS ORDERED: atenoloL 50 MG TABLET ONE (12:44)
[2021-11-30] MEDS ORDERED: Benzonatate 100 MG CAPSULE PO ONE (12:45)
[2021-11-30] MEDS ORDERED: ALPRAZolam 0.25 MG TABLET ONE (12:46)
[2021-11-30] MEDS ORDERED: GuaiFENesin Liq 200 MG/10 ML UDC PO PRN (14:33)
[2021-11-30] MEDS: Benzonatate 100 MG CAPSULE PO SCH ×3 (14:46→20:13)
[2021-11-30] MEDS: atenoloL 50 MG TABLET PO SCH (14:46)
[2021-11-30] MEDS: Magnesium Oxide 400 MG TABLET PO SCH (14:47)
[2021-11-30] MEDS: Gabapentin 100 MG CAPSULE PO SCH ×2 (15:08→20:13)
[2021-11-30] MEDS: Baclofen 10 MG TABLET PO SCH ×3 (15:09→20:25)
[2021-11-30] MEDS: ALPRAZolam 0.5 MG TABLET PO PRN ×2 (15:09→20:13)
[2021-11-30] MEDS: Azithromycin 500 MG in 0.9 % Sodium Chloride 250 ML IVPB SCH (18:12)
[2021-11-30] MEDS: Mirtazapine 15 MG TABLET PO SCH (20:13)
[2021-11-30] MEDS: hydrALAZINE 10 MG TABLET PO SCH (20:13)
[2021-11-30] MEDS: Melatonin 3 MG TABLET PO SCH (20:13)
[2021-11-30] MEDS: Famotidine 20 MG TABLET PO SCH (20:14)
[2021-11-30] MEDS: clonazePAM 0.5 MG TABLET PO SCH (20:14)
[2021-12-01] MEDS: Cefepime HCl 2,000 MG in 0.9 % Sodium Chloride 10 ML IVP SCH ×2 (01:58→13:10)
[2021-12-01 03:32] LABS: Basophils % 0.2 %; Hematocrit 32.5 % (35.3-44.9); Immature Granulocytes % 0.5 % (0-4); Lymphocytes # 1.7 K/mcL (0.6-4.6); Mean Corpuscular HGB Conc 30.8 g/dL (31.6-35.5); Mean Corpuscular Hemoglobin 27.6 pg (28.0-33.3); Mean Corpuscular Volume 89.8 fL (83.0-100.0); Mean Platelet Volume 9.9 fL (9.4-12.4); Monocytes % 9.4 %; Neutrophils # 8.2 K/mcL (1.6-8.9); Platelet Count 305 K/mcL (140-400); Potassium 4.4 mEq/L (3.5-5.1); Red Blood Count 3.62 M/mcL (3.82-4.97); Red Cell Distribution Width 14.6 % (11.5-14.5); Segmented Neutrophils % 74.9 %
[2021-12-01] MEDS ORDERED: Cefepime HCl 2,000 MG in 0.9 % Sodium Chloride 10 ML IVP SCH (06:00)
[2021-12-01] MEDS ORDERED: Tiotropium 10 INH DOSE IH ONE (07:48)
[2021-12-01] MEDS: Budesonide/Formoterol 160/4.5 1 PUFF INH IH SCH ×4 (07:51→21:05)
[2021-12-01] MEDS: Tiotropium 10 INH DOSE IH SCH (07:51)
[2021-12-01] MEDS: *HR* HYDROcodone/Acet 5/325 mg TABLET PO PRN ×3 (08:17→23:40)
[2021-12-01] MEDS: *HR* Enoxaparin 40 MG/0.4 ML SYRINGE SQ SCH (08:17)
[2021-12-01] MEDS: Benzonatate 100 MG CAPSULE PO SCH ×3 (08:18→21:54)
[2021-12-01] MEDS: predniSONE 20 MG TABLET PO SCH (08:18)
[2021-12-01] MEDS: Baclofen 10 MG TABLET PO SCH ×4 (08:18→21:53)
[2021-12-01] MEDS: hydrALAZINE 10 MG TABLET PO SCH ×2 (08:18→21:53)
[2021-12-01] MEDS: atenoloL 50 MG TABLET PO SCH (08:19)
[2021-12-01] MEDS: Magnesium Oxide 400 MG TABLET PO SCH (08:19)
[2021-12-01] MEDS: Gabapentin 100 MG CAPSULE PO SCH ×3 (08:19→21:53)
[2021-12-01 08:24] LABS: A.calcoaceticus-baumannii cplx Not Detected (Not Detect); Bacteroides fragilis by PCR Not Detected (Not Detect); Candida albicans by PCR Not Detected (Not Detect); Candida auris by PCR Not Detected (Not Detect); Candida glabrata by PCR Not Detected (Not Detect); Candida krusei by PCR Not Detected (Not Detect); Candida parapsilosis by PCR Not Detected (Not Detect); Candida tropicalis by PCR Not Detected (Not Detect); Crypto. neoformans/gattii PCR Not Detected (Not Detect); Enterobacter cloacae Cmplx PCR Not Detected (Not Detect); Enterobacterales by PCR Not Detected (Not Detect); Enterococcus faecalis by PCR Not Detected (Not Detect); Enterococcus faecium by PCR Not Detected (Not Detect); Escherichia coli by PCR Not Detected (Not Detect); Klebs. pneumoniae group by PCR Not Detected (Not Detect); Klebsiella aerogenes by PCR Not Detected (Not Detect); Klebsiella oxytoca by PCR Not Detected (Not Detect); Proteus by PCR Not Detected (Not Detect); Pseudomonas aeruginosa by PCR Not Detected (Not Detect); Salmonella species by PCR Not Detected (Not Detect); Serratia marcescens by PCR Not Detected (Not Detect); Staph epidermidis by PCR Not Detected (Not Detect); Staph lugdunensis by PCR Not Detected (Not Detect); Staphylococcus aureus by PCR Not Detected (Not Detect); Staphylococcus by PCR DETECTED (Not Detect); Stenotrophomonas maltophilia Not Detected (Not Detect); Streptococcus agalactiae(B)PCR Not Detected (Not Detect); Streptococcus by PCR Not Detected (Not Detect); Streptococcus pneumoniae PCR Not Detected (Not Detect); Streptococcus pyogenes (A) PCR Not Detected (Not Detect)
[2021-12-01] MEDS: ALPRAZolam 0.5 MG TABLET PO PRN (08:34)
[2021-12-01] MEDS: Azithromycin 500 MG in 0.9 % Sodium Chloride 250 ML IVPB SCH (17:19)
[2021-12-01] MEDS: clonazePAM 0.5 MG TABLET PO SCH (21:53)
[2021-12-01] MEDS: Mirtazapine 15 MG TABLET PO SCH (21:53)
[2021-12-01] MEDS: Famotidine 20 MG TABLET PO SCH (21:54)
[2021-12-01] MEDS: Melatonin 3 MG TABLET PO SCH (21:54)
[2021-12-02] MEDS: Cefepime HCl 2,000 MG in 0.9 % Sodium Chloride 10 ML IVP SCH ×2 (00:44→13:13)
[2021-12-02 01:12] LABS: Basophils % 0.2 %; Eosinophils % 0.1 %; Hematocrit 32.7 % (35.3-44.9); Hemoglobin 10.1 g/dL (11.5-15.4); Immature Granulocytes % 0.6 % (0-4); Lymphocytes # 1.8 K/mcL (0.6-4.6); Lymphocytes % 17.7 %; Mean Corpuscular HGB Conc 30.9 g/dL (31.6-35.5); Mean Corpuscular Hemoglobin 27.9 pg (28.0-33.3); Mean Corpuscular Volume 90.3 fL (83.0-100.0); Mean Platelet Volume 10.1 fL (9.4-12.4); Monocytes # 0.6 K/mcL (0.0-1.3); Neutrophils # 7.5 K/mcL (1.6-8.9); Platelet Count 278 K/mcL (140-400); Red Blood Count 3.62 M/mcL (3.82-4.97); Red Cell Distribution Width 14.6 % (11.5-14.5); Segmented Neutrophils % 75.4 %; White Blood Count 9.9 K/mcL (4.3-11.1)
[2021-12-02 01:47] LABS: Potassium 3.7 mEq/L (3.5-5.1)
[2021-12-02] MEDS: atenoloL 50 MG TABLET PO SCH (08:37)
[2021-12-02] MEDS: Gabapentin 100 MG CAPSULE PO SCH ×3 (08:38→21:54)
[2021-12-02] MEDS: Magnesium Oxide 400 MG TABLET PO SCH (08:38)
[2021-12-02] MEDS: predniSONE 20 MG TABLET PO SCH (08:38)
[2021-12-02] MEDS: *HR* Enoxaparin 40 MG/0.4 ML SYRINGE SQ SCH (08:39)
[2021-12-02] MEDS: Benzonatate 100 MG CAPSULE PO SCH ×3 (08:39→21:54)
[2021-12-02] MEDS: hydrALAZINE 10 MG TABLET PO SCH ×2 (08:39→21:54)
[2021-12-02] MEDS: ALPRAZolam 0.5 MG TABLET PO PRN (08:55)
[2021-12-02] MEDS: Budesonide/Formoterol 160/4.5 1 PUFF INH IH SCH ×4 (11:26→20:19)
[2021-12-02] MEDS: Tiotropium 10 INH DOSE IH SCH (11:26)
[2021-12-02] MEDS: Baclofen 10 MG TABLET PO SCH ×3 (13:13→21:54)
[2021-12-02] MEDS: *HR* HYDROcodone/Acet 5/325 mg TABLET PO PRN (13:19)
[2021-12-02] MEDS: Azithromycin 500 MG in 0.9 % Sodium Chloride 250 ML IVPB SCH (17:09)
[2021-12-02] MEDS: clonazePAM 0.5 MG TABLET PO SCH (21:53)
[2021-12-02] MEDS: Melatonin 3 MG TABLET PO SCH (21:53)
[2021-12-02] MEDS: Mirtazapine 15 MG TABLET PO SCH (21:54)
[2021-12-02] MEDS: Famotidine 20 MG TABLET PO SCH (21:54)
[2021-12-03] MEDS: Cefepime HCl 2,000 MG in 0.9 % Sodium Chloride 10 ML IVP SCH ×2 (00:44→13:24)
[2021-12-03 02:07] LABS: Basophils % 0.2 %; Eosinophils % 0.1 %; Hematocrit 29.8 % (35.3-44.9); Hemoglobin 9.3 g/dL (11.5-15.4); Immature Granulocytes % 0.9 % (0-4); Lymphocytes # 1.9 K/mcL (0.6-4.6); Lymphocytes % 20.6 %; Mean Corpuscular HGB Conc 31.2 g/dL (31.6-35.5); Mean Corpuscular Hemoglobin 27.7 pg (28.0-33.3); Mean Corpuscular Volume 88.7 fL (83.0-100.0); Monocytes # 0.7 K/mcL (0.0-1.3); Monocytes % 7.1 %; Neutrophils # 6.6 K/mcL (1.6-8.9); Platelet Count 273 K/mcL (140-400); Red Blood Count 3.36 M/mcL (3.82-4.97); Red Cell Distribution Width 14.4 % (11.5-14.5); Segmented Neutrophils % 71.1 %; White Blood Count 9.3 K/mcL (4.3-11.1)
[2021-12-03 02:17] LABS: BUN/Creatinine Ratio 23 (6-26); Blood Urea Nitrogen 15 mg/dL (8-23); Calcium 8.9 mg/dL (8.6-10.3); Carbon Dioxide 33 mEq/L (23-29); Chloride 102 mEq/L (98-107); Glucose 159 mg/dL (70-105); Osmolality,Calculated 294 (280-300); Sodium 140 mEq/L (136-145)
[2021-12-03] MEDS: Tiotropium 10 INH DOSE IH SCH (07:21)
[2021-12-03] MEDS: Budesonide/Formoterol 160/4.5 1 PUFF INH IH SCH ×4 (07:21→19:29)
[2021-12-03] MEDS: predniSONE 20 MG TABLET PO SCH (08:08)
[2021-12-03] MEDS: Baclofen 10 MG TABLET PO SCH ×4 (08:09→20:44)
[2021-12-03] MEDS: Gabapentin 100 MG CAPSULE PO SCH ×3 (08:09→20:44)
[2021-12-03] MEDS: Magnesium Oxide 400 MG TABLET PO SCH (08:09)
[2021-12-03] MEDS: hydrALAZINE 10 MG TABLET PO SCH ×2 (08:09→20:42)
[2021-12-03] MEDS: Benzonatate 100 MG CAPSULE PO SCH ×3 (08:09→20:43)
[2021-12-03] MEDS: atenoloL 50 MG TABLET PO SCH (08:10)
[2021-12-03] MEDS: *HR* Enoxaparin 40 MG/0.4 ML SYRINGE SQ SCH (08:11)
[2021-12-03] MEDS: GuaiFENesin Liq 200 MG/10 ML UDC PO SCH ×3 (10:02→20:44)
[2021-12-03 13:36] LABS: Adenovirus F 40/41 PCR Not detected (Not detect); Astrovirus PCR Not detected (Not detect); C.difficile Toxin A/B Gene PCR Not detected (Not detect); Campylobacter by PCR Not detected (Not detect); Cryptosporidium by PCR Not detected (Not detect); Cyclospora cayetanensis PCR Not detected (Not detect); Entamoeba histolytica PCR Not detected (Not detect); Enteroaggregative E.coli(EAEC) Not detected (Not detect); Enteropathogenic E.coli(EPEC) Not detected (Not detect); Enterotoxigenic E.coli (ETEC) Not detected (Not detect); Giardia lamblia PCR Not detected (Not detect); Norovirus GI/GII PCR Not detected (Not detect); Plesiomonas shigelloides PCR Not detected (Not detect); Rotavirus A PCR Not detected (Not detect); Salmonella PCR Not detected (Not detect); Sapovirus PCR Not detected (Not detect); Shig/EnteroinvasiveE coli EIEC Not detected (Not detect); Shigalike tox-prod E coli STEC Not detected (Not detect); Vibrio PCR Not detected (Not detect); Vibrio cholerae PCR Not detected (Not detect); Yersinia enterocolitica PCR Not detected (Not detect)
[2021-12-03] MEDS: Azithromycin 250 MG TABLET PO SCH (17:06)
[2021-12-03] MEDS: Mirtazapine 15 MG TABLET PO SCH (20:40)
[2021-12-03] MEDS: Melatonin 3 MG TABLET PO SCH (20:41)
[2021-12-03] MEDS: Famotidine 20 MG TABLET PO SCH (20:42)
[2021-12-03] MEDS: clonazePAM 0.5 MG TABLET PO SCH (20:44)
[2021-12-04] MEDS: Cefepime HCl 2,000 MG in 0.9 % Sodium Chloride 10 ML IVP SCH ×2 (01:10→12:14)
[2021-12-04] MEDS: GuaiFENesin Liq 200 MG/10 ML UDC PO SCH ×4 (02:42→21:11)
[2021-12-04] MEDS: *HR* HYDROcodone/Acet 5/325 mg TABLET PO PRN ×2 (02:43→12:17)
[2021-12-04 02:55] LABS: Basophils % 0.3 %; Eosinophils % 0.1 %; Hematocrit 33.1 % (35.3-44.9); Hemoglobin 10.4 g/dL (11.5-15.4); Lymphocytes # 2.5 K/mcL (0.6-4.6); Lymphocytes % 25.5 %; Mean Corpuscular HGB Conc 31.4 g/dL (31.6-35.5); Mean Corpuscular Hemoglobin 27.4 pg (28.0-33.3); Mean Corpuscular Volume 87.3 fL (83.0-100.0); Monocytes # 0.8 K/mcL (0.0-1.3); Monocytes % 8.7 %; Neutrophils # 6.2 K/mcL (1.6-8.9); Platelet Count 314 K/mcL (140-400); Red Blood Count 3.79 M/mcL (3.82-4.97); Red Cell Distribution Width 14.3 % (11.5-14.5); Segmented Neutrophils % 64.4 %; White Blood Count 9.7 K/mcL (4.3-11.1)
[2021-12-04 03:09] LABS: BUN/Creatinine Ratio 27 (6-26); Blood Urea Nitrogen 16 mg/dL (8-23); Calcium 9.2 mg/dL (8.6-10.3); Carbon Dioxide 34 mEq/L (23-29); Chloride 102 mEq/L (98-107); Glucose 80 mg/dL (70-105); Osmolality,Calculated 292 (280-300); Potassium 4.2 mEq/L (3.5-5.1); Sodium 141 mEq/L (136-145)
[2021-12-04] MEDS: ALPRAZolam 0.5 MG TABLET PO PRN (04:59)
[2021-12-04] MEDS: Magnesium Oxide 400 MG TABLET PO SCH (07:31)
[2021-12-04] MEDS: predniSONE 20 MG TABLET PO SCH (07:31)
[2021-12-04] MEDS: Gabapentin 100 MG CAPSULE PO SCH ×3 (07:31→21:11)
[2021-12-04] MEDS: Benzonatate 100 MG CAPSULE PO SCH ×3 (07:32→21:11)
[2021-12-04] MEDS: hydrALAZINE 10 MG TABLET PO SCH ×2 (07:32→21:11)
[2021-12-04] MEDS: atenoloL 50 MG TABLET PO SCH (07:32)
[2021-12-04] MEDS: Baclofen 10 MG TABLET PO SCH ×4 (07:32→21:13)
[2021-12-04] MEDS: *HR* Enoxaparin 40 MG/0.4 ML SYRINGE SQ SCH (07:32)
[2021-12-04] MEDS: Tiotropium 10 INH DOSE IH SCH (10:07)
[2021-12-04] MEDS: Budesonide/Formoterol 160/4.5 1 PUFF INH IH SCH ×4 (10:09→22:50)
[2021-12-04] MEDS: Azithromycin 250 MG TABLET PO SCH (15:54)
[2021-12-04] MEDS: Mirtazapine 15 MG TABLET PO SCH (21:10)
[2021-12-04] MEDS: clonazePAM 0.5 MG TABLET PO SCH (21:10)
[2021-12-04] MEDS: Famotidine 20 MG TABLET PO SCH (21:10)
[2021-12-04] MEDS: Melatonin 3 MG TABLET PO SCH (21:11)
[2021-12-05] MEDS: Cefepime HCl 2,000 MG in 0.9 % Sodium Chloride 10 ML IVP SCH ×2 (01:25→14:06)
[2021-12-05] MEDS: GuaiFENesin Liq 200 MG/10 ML UDC PO SCH ×4 (04:26→21:08)
[2021-12-05] MEDS: *HR* HYDROcodone/Acet 5/325 mg TABLET PO PRN (08:02)
[2021-12-05 08:03] LABS: Basophils # 0.1 K/mcL (0.0-0.2); Basophils % 0.5 %; Eosinophils # 0.1 K/mcL (0.0-0.6); Hematocrit 35.2 % (35.3-44.9); Hemoglobin 11.2 g/dL (11.5-15.4); Immature Granulocytes % 1.2 % (0-4); Lymphocytes # 3.3 K/mcL (0.6-4.6); Lymphocytes % 32.7 %; Mean Corpuscular HGB Conc 31.8 g/dL (31.6-35.5); Mean Corpuscular Hemoglobin 27.7 pg (28.0-33.3); Mean Corpuscular Volume 87.1 fL (83.0-100.0); Mean Platelet Volume 9.5 fL (9.4-12.4); Monocytes # 0.9 K/mcL (0.0-1.3); Monocytes % 8.8 %; Neutrophils # 5.7 K/mcL (1.6-8.9); Platelet Count 302 K/mcL (140-400); Red Blood Count 4.04 M/mcL (3.82-4.97); Red Cell Distribution Width 14.6 % (11.5-14.5); Segmented Neutrophils % 55.8 %; White Blood Count 10.2 K/mcL (4.3-11.1)
[2021-12-05] MEDS: Magnesium Oxide 400 MG TABLET PO SCH (08:03)
[2021-12-05] MEDS: predniSONE 20 MG TABLET PO SCH (08:03)
[2021-12-05] MEDS: hydrALAZINE 10 MG TABLET PO SCH ×2 (08:03→21:08)
[2021-12-05] MEDS: atenoloL 50 MG TABLET PO SCH (08:04)
[2021-12-05] MEDS: Baclofen 10 MG TABLET PO SCH ×4 (08:04→21:08)
[2021-12-05] MEDS: Benzonatate 100 MG CAPSULE PO SCH ×3 (08:04→21:08)
[2021-12-05] MEDS: *HR* Enoxaparin 40 MG/0.4 ML SYRINGE SQ SCH (08:04)
[2021-12-05] MEDS: Gabapentin 100 MG CAPSULE PO SCH ×3 (08:04→21:08)
[2021-12-05] MEDS: ALPRAZolam 0.5 MG TABLET PO PRN (08:17)
[2021-12-05 08:23] LABS: Calcium 9.3 mg/dL (8.6-10.3)
[2021-12-05] MEDS: Tiotropium 10 INH DOSE IH SCH (09:59)
[2021-12-05] MEDS: Budesonide/Formoterol 160/4.5 1 PUFF INH IH SCH ×4 (09:59→22:34)
[2021-12-05] MEDS: Azithromycin 250 MG TABLET PO SCH (16:59)
[2021-12-05] MEDS: ALPRAZolam 0.25 MG TABLET PO SCH ×2 (16:59→21:08)
[2021-12-05] MEDS: clonazePAM 0.5 MG TABLET PO SCH (21:07)
[2021-12-05] MEDS: Famotidine 20 MG TABLET PO SCH (21:08)
[2021-12-05] MEDS: Mirtazapine 15 MG TABLET PO SCH (21:08)
[2021-12-05] MEDS: Melatonin 3 MG TABLET PO SCH (21:08)
[2021-12-06] MEDS: Cefepime HCl 2,000 MG in 0.9 % Sodium Chloride 10 ML IVP SCH ×2 (00:35→14:33)
[2021-12-06] MEDS: GuaiFENesin Liq 200 MG/10 ML UDC PO SCH ×4 (05:38→20:40)
[2021-12-06] MEDS: atenoloL 50 MG TABLET PO SCH (08:13)
[2021-12-06] MEDS: Baclofen 10 MG TABLET PO SCH ×4 (08:13→20:40)
[2021-12-06] MEDS: Benzonatate 100 MG CAPSULE PO SCH ×3 (08:13→20:40)
[2021-12-06] MEDS: Gabapentin 100 MG CAPSULE PO SCH ×3 (08:13→20:40)
[2021-12-06] MEDS: ALPRAZolam 0.25 MG TABLET PO SCH ×3 (08:13→20:40)
[2021-12-06] MEDS: hydrALAZINE 10 MG TABLET PO SCH ×2 (08:14→20:40)
[2021-12-06] MEDS: predniSONE 20 MG TABLET PO SCH (08:14)
[2021-12-06] MEDS: Magnesium Oxide 400 MG TABLET PO SCH (08:14)
[2021-12-06] MEDS: *HR* Enoxaparin 40 MG/0.4 ML SYRINGE SQ SCH (08:14)
[2021-12-06] MEDS: Budesonide/Formoterol 160/4.5 1 PUFF INH IH SCH ×4 (08:16→20:02)
[2021-12-06] MEDS: Tiotropium 10 INH DOSE IH SCH (08:16)
[2021-12-06] MEDS: *HR* HYDROcodone/Acet 5/325 mg TABLET PO PRN (11:50)
[2021-12-06] MEDS: Azithromycin 250 MG TABLET PO SCH (17:03)
[2021-12-06] MEDS: Famotidine 20 MG TABLET PO SCH (20:40)
[2021-12-06] MEDS: clonazePAM 0.5 MG TABLET PO SCH (20:40)
[2021-12-06] MEDS: Melatonin 3 MG TABLET PO SCH (20:40)
[2021-12-06] MEDS: Mirtazapine 15 MG TABLET PO SCH (20:40)
[2021-12-07] MEDS: Cefepime HCl 2,000 MG in 0.9 % Sodium Chloride 10 ML IVP SCH ×2 (02:26→13:32)
[2021-12-07] MEDS: GuaiFENesin Liq 200 MG/10 ML UDC PO SCH ×4 (04:57→21:34)
[2021-12-07] MEDS: hydrALAZINE 10 MG TABLET PO SCH ×2 (08:38→21:34)
[2021-12-07] MEDS: Gabapentin 100 MG CAPSULE PO SCH ×3 (08:38→21:34)
[2021-12-07] MEDS: predniSONE 20 MG TABLET PO SCH (08:38)
[2021-12-07] MEDS: Benzonatate 100 MG CAPSULE PO SCH ×3 (08:38→21:33)
[2021-12-07] MEDS: Magnesium Oxide 400 MG TABLET PO SCH (08:38)
[2021-12-07] MEDS: ALPRAZolam 0.25 MG TABLET PO SCH ×3 (08:39→21:34)
[2021-12-07] MEDS: atenoloL 50 MG TABLET PO SCH (08:39)
[2021-12-07] MEDS: *HR* Enoxaparin 40 MG/0.4 ML SYRINGE SQ SCH (08:39)
[2021-12-07] MEDS: Baclofen 10 MG TABLET PO SCH ×4 (08:39→21:33)
[2021-12-07] MEDS: Tiotropium 10 INH DOSE IH SCH (10:48)
[2021-12-07] MEDS: Budesonide/Formoterol 160/4.5 1 PUFF INH IH SCH ×4 (10:49→20:20)
[2021-12-07] MEDS: *HR* HYDROcodone/Acet 5/325 mg TABLET PO PRN (13:31)
[2021-12-07] MEDS: Azithromycin 250 MG TABLET PO SCH (16:16)
[2021-12-07] MEDS: Mirtazapine 15 MG TABLET PO SCH (21:33)
[2021-12-07] MEDS: clonazePAM 0.5 MG TABLET PO SCH (21:34)
[2021-12-07] MEDS: Famotidine 20 MG TABLET PO SCH (21:34)
[2021-12-07] MEDS: Melatonin 3 MG TABLET PO SCH (21:34)
[2021-12-08] MEDS: GuaiFENesin Liq 200 MG/10 ML UDC PO SCH ×2 (05:37→08:19)
[2021-12-08] MEDS: Tiotropium 10 INH DOSE IH SCH (07:54)
[2021-12-08] MEDS: Budesonide/Formoterol 160/4.5 1 PUFF INH IH SCH ×4 (07:54→22:57)
[2021-12-08] MEDS: Baclofen 10 MG TABLET PO SCH ×4 (08:18→21:14)
[2021-12-08] MEDS: ALPRAZolam 0.25 MG TABLET PO SCH ×3 (08:18→21:16)
[2021-12-08] MEDS: Benzonatate 100 MG CAPSULE PO SCH ×3 (08:19→21:15)
[2021-12-08] MEDS: Gabapentin 100 MG CAPSULE PO SCH ×3 (08:19→21:15)
[2021-12-08] MEDS: atenoloL 50 MG TABLET PO SCH (08:19)
[2021-12-08] MEDS: *HR* Enoxaparin 40 MG/0.4 ML SYRINGE SQ SCH (08:20)
[2021-12-08] MEDS: Magnesium Oxide 400 MG TABLET PO SCH (08:25)
[2021-12-08] MEDS: hydrALAZINE 10 MG TABLET PO SCH ×2 (08:25→21:14)
[2021-12-08] MEDS: *HR* HYDROcodone/Acet 5/325 mg TABLET PO PRN (11:10)
[2021-12-08 13:15] LABS: Basophils # 0.1 K/mcL (0.0-0.2); Basophils % 0.4 %; Eosinophils # 0.2 K/mcL (0.0-0.6); Eosinophils % 1.3 %; Hematocrit 41.1 % (35.3-44.9); Immature Granulocytes % 1.2 % (0-4); Lymphocytes # 3.7 K/mcL (0.6-4.6); Lymphocytes % 27.7 %; Mean Corpuscular HGB Conc 31.1 g/dL (31.6-35.5); Mean Corpuscular Hemoglobin 27.9 pg (28.0-33.3); Mean Corpuscular Volume 89.7 fL (83.0-100.0); Mean Platelet Volume 9.8 fL (9.4-12.4); Monocytes # 1.1 K/mcL (0.0-1.3); Monocytes % 8.5 %; Neutrophils # 8.2 K/mcL (1.6-8.9); Platelet Count 310 K/mcL (140-400); Red Blood Count 4.58 M/mcL (3.82-4.97); Red Cell Distribution Width 14.9 % (11.5-14.5); Segmented Neutrophils % 60.9 %; White Blood Count 13.4 K/mcL (4.3-11.1)
[2021-12-08 13:26] LABS: Hemoglobin 12.8 g/dL (11.5-15.4)
[2021-12-08 13:32] LABS: Calcium 10.1 mg/dL (8.6-10.3); Potassium 3.9 mEq/L (3.5-5.1)
[2021-12-08] MEDS: Ipratropium/Albuterol Neb 3 ML IH SCH ×3 (15:58→22:57)
[2021-12-08] MEDS: Azithromycin 250 MG TABLET PO SCH (17:37)
[2021-12-08] MEDS: Famotidine 20 MG TABLET PO SCH (21:15)
[2021-12-08] MEDS: Mirtazapine 15 MG TABLET PO SCH (21:15)
[2021-12-08] MEDS: clonazePAM 0.5 MG TABLET PO SCH (21:15)
[2021-12-08] MEDS: Melatonin 3 MG TABLET PO SCH (21:16)
[2021-12-09] MEDS: Ipratropium/Albuterol Neb 3 ML IH SCH ×4 (04:23→21:51)
[2021-12-09] MEDS: ALPRAZolam 0.25 MG TABLET PO SCH ×3 (08:07→21:33)
[2021-12-09] MEDS: atenoloL 50 MG TABLET PO SCH (08:08)
[2021-12-09] MEDS: Gabapentin 100 MG CAPSULE PO SCH ×3 (08:08→21:32)
[2021-12-09] MEDS: hydrALAZINE 10 MG TABLET PO SCH ×2 (08:08→21:39)
[2021-12-09] MEDS: Benzonatate 100 MG CAPSULE PO SCH ×3 (08:08→21:33)
[2021-12-09] MEDS: Magnesium Oxide 400 MG TABLET PO SCH (08:08)
[2021-12-09] MEDS: Baclofen 10 MG TABLET PO SCH ×4 (08:08→21:38)
[2021-12-09] MEDS: *HR* Enoxaparin 40 MG/0.4 ML SYRINGE SQ SCH (08:09)
[2021-12-09] MEDS: *HR* HYDROcodone/Acet 5/325 mg TABLET PO PRN ×3 (08:25→21:38)
[2021-12-09] MEDS: Tiotropium 10 INH DOSE IH SCH (10:37)
[2021-12-09] MEDS: Budesonide/Formoterol 160/4.5 1 PUFF INH IH SCH ×4 (10:37→21:51)
[2021-12-09 16:48] LABS: Influenza A PCR Negative (Negative); Influenza B PCR Negative (Negative); Resp. Syncytial Virus PCR Negative (Negative)
[2021-12-09 16:49] LABS: SARS-CoV-2 by PCR (In House) Negative (Negative)
[2021-12-09] MEDS: Azithromycin 250 MG TABLET PO SCH (17:13)
[2021-12-09] MEDS: Melatonin 3 MG TABLET PO SCH (21:32)
[2021-12-09] MEDS: Mirtazapine 15 MG TABLET PO SCH (21:33)
[2021-12-09] MEDS: clonazePAM 0.5 MG TABLET PO SCH (21:33)
[2021-12-09] MEDS: Famotidine 20 MG TABLET PO SCH (21:33)
[2021-12-10] MEDS: Tiotropium 10 INH DOSE IH SCH (08:00)
[2021-12-10] MEDS: Budesonide/Formoterol 160/4.5 1 PUFF INH IH SCH ×2 (08:00→08:03)
[2021-12-10] MEDS: ALPRAZolam 0.25 MG TABLET PO SCH ×2 (08:57→14:20)
[2021-12-10] MEDS: Magnesium Oxide 400 MG TABLET PO SCH (08:57)
[2021-12-10] MEDS: Baclofen 10 MG TABLET PO SCH ×2 (08:57→14:20)
[2021-12-10] MEDS: hydrALAZINE 10 MG TABLET PO SCH (08:58)
[2021-12-10] MEDS: Benzonatate 100 MG CAPSULE PO SCH ×2 (08:58→14:20)
[2021-12-10] MEDS: Gabapentin 100 MG CAPSULE PO SCH ×2 (08:58→14:20)
[2021-12-10] MEDS: *HR* Enoxaparin 40 MG/0.4 ML SYRINGE SQ SCH (08:58)
[2021-12-10] MEDS: atenoloL 50 MG TABLET PO SCH (08:58)
[2021-12-10] MEDS ORDERED: predniSONE 20 MG TABLET PO SCH (09:00)
[2021-12-10] MEDS: *HR* HYDROcodone/Acet 5/325 mg TABLET PO PRN (14:20)
[2021-12-10 15:14] VITALS: BP 129/60; PULSE 85; TEMP 98.6; O2SAT 91
== END 2021-12-10 15:23 | DRG 193 ==
LOC: 3NENU 12:55 → EMEROOARM 12:55 → SUATTDRO 18:16 → 3NENU 18:47 → SUATTDRO 11-30 10:19 → 3BNU 12-04 19:44
PROVIDERS: ADMIT Internal Medicine; ATTEND Internal Medicine